=== PATIENT | male | born 1970 | race Caucasian/White ===

== ENCOUNTER 2018-01-19 16:40 | Emergency (ER) | payer SELFPAY ==
[~2018-01-19 16:40] MED LIST: ACE500 PO; ALEVE; AMIT150T21 PO; BLOOD PRESSURE MED; CEPH500C24 PO; CLI150 PO; CLIN-75 PO; CLIN300C99 PO; CYC10 PO; DOC100 PO; DOCU-416 PO; GABA-503 PO; HYD2 PO; HYDR-3140 PO; HYDR-385 PO; HYDR-4309 PO; KET10 PO; LOR1 PO; LOR5 PO; LOR5/325 PO; LORA-630 PO; METF-410 PO; MOTRIN; NAPR-1043 PO; NO RTN MEDS; OND4 PO; OXYC-763 PO; OXYC1CAP42 PO; PAN20 PO; PER PO; TRAM-420 PO; TYLENOL; WARF7.5T13 PO
--- NOTE | 2018-01-19 16:50 | ER Report ---
History and Physical Time Seen By MD: 16:49 Hx. 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 PT IS ON XARELTO. HIS PAIN IS WORSE TODAY AND THIS IS THE REASON FOR HIS VISIT HPI/ROS CHIEF COMPLAINT: Right leg pain HISTORY OF PRESENT ILLNESS: 47-year-old male patient presents to the emergency room with complaint of right leg pain. 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 He states the last couple days the pain has been significant. Patient states he's been taking Tylenol for the pain with no improvement. He denies having any fevers, chills, nausea, vomiting or diarrhea. Patient denies any shortness of breath or chest pain. Patient states that he currently lives in [facility] and is planning to move to [place]. Patient states that he is taking Xarelto has taking 20 mg daily. He states that he has not missed any doses. REVIEW OF SYSTEMS: Respiratory: No cough, no dyspnea. Cardiovascular: As noted above. Gastrointestinal: No vomiting, no abdominal pain. Musculoskeletal: No back pain. Allergies: Coded Allergies: ketorolac (Verified Allergy, Severe, PROBLEMS BREATHING, 01/19/18) propoxyphene (Verified Allergy, Severe, DIFFICULTY BREATHING, 01/19/18) Penicillins (Verified Allergy, Intermediate, HIVES, SWELIING , 01/19/18) NSAIDS (Non-Steroidal Anti-Inflamma (Verified Allergy, Unknown, 01/19/18) BLOOD THINNERS Home Meds Reported Medications Rivaroxaban 10 MG (Xarelto 10 MG) 10 Mg Tablet 01/19/18 Atorvastatin Calcium (LIPITOR) 20 Mg Tablet, 1 TAB PO QDAY, TAB 01/19/18 Gabapentin (GABAPENTIN) 600 Mg Tablet, 600 MG PO TID 05/21/15 Amitriptyline Hcl (AMITRIPTYLINE HCL) 150 Mg Tablet, 150 MG PO QHS, TAB 05/21/15 Discontinued Reported Medications Clindamycin Hcl (CLINDAMYCIN HCL) 150 Mg Capsule, 150 MG PO TID, #30 CAPSULE 09/03/17 [Blood Pressure Med] No Conflict Check 05/27/17 Warfarin Sodium (WARFARIN SODIUM) 7.5 Mg Tablet, 7.5 MG PO QDAY 05/21/15 Discontinued Scripts Hydrocodone Bit/Acetaminophen (HYDROCODON-ACETAMINOPHEN 5-325) 1 Each Tablet, 1 EACH PO Q4-6H Y for PAIN, #10 TAB Prov:ASHA FINN TABLEAU ANALYST-BC 09/03/17 Clindamycin Hcl (CLINDAMYCIN HCL) 300 Mg Capsule, 300 MG PO Q6H, #28 CAPSULE Prov:ASHA FINN TABLEAU ANALYST-BC 09/03/17 Tramadol Hcl (TRAMADOL HCL) 50 Mg Tablet, 50 MG PO Q8H Y for prn, #6 TAB Prov:LIZETTE RANDOLPH PA-C 08/22/17 Past Medical/Surgical History Patient has a past medical history of CVA, SD, DVT, hypertension, asthma, PE, ulcer, back pain, type 2 diabetes. Patient has surgical history of tonsillectomy. Reviewed Nurses Notes: Yes Hx Smoking: Yes Smoking Status: Light Tobacco Smoker Hx Substance Use Disorder: No Hx Alcohol Use: No Constitutional Vital Sign - Last 24 Hours 01/19/18 01/19/18 01/19/18 01/19/18 16:45 16:45 17:00 17:10 Temp 98.1 Pulse 98 114 Resp 20 B/P (MAP) 129/101 (110) 129/101 138/81 (100) Pulse Ox 94 92 O2 Delivery Room Air 01/19/18 01/19/18 01/19/18 01/19/18 17:15 17:30 17:40 17:45 Pulse 110 B/P (MAP) 148/102 (117) 145/95 (112) 125/91 (102) Physical Exam General Appearance: The patient is alert, has no immediate need for airway protection and no current signs of toxicity. Respiratory: Chest is non tender, lungs are clear to auscultation. Cardiac: regular rate and rhythm Gastrointestinal: Abdomen is soft and non tender, no masses, bowel sounds normal. Musculoskeletal: Neck: Neck is supple and non tender. Extremities have full range of motion and are non tender. Patient has tenderness to the medial aspect of the right upper leg, does have some swelling to the lower extremity. Skin: No rashes or lesions. DIFFERENTIAL DIAGNOSIS: After history and physical exam differential diagnosis was considered for DVT, aspiration of chronic pain. Medical Decision Making EKG/Imaging Imaging EXAMINATION: Right LOWER EXTREMITY VENOUS DOPPLER ULTRASOUND DATE: 01/19/2018 6:10 PM REASON FOR STUDY: leg pain, hx of DVT TECHNIQUE: Grayscale, color Doppler, and spectral Doppler ultrasound was performed of the lower extremity veins to evaluate for deep venous thrombosis. COMPARISON: None FINDINGS: The right common femoral and femoral are compressible with normal flow on color Doppler imaging. There is also normal Doppler flow of the profunda femoris and greater saphenous veins at the confluence with the common femoral vein. The right popliteal vein is partially compressible. Flow is demonstrated. The posterior tibial and anterior tibial veins are patent. The peroneal vein could not be demonstrated. The contralateral left common femoral vein demonstrates normal flow. IMPRESSION: The right popliteal vein is partially compressible, but flow is demonstrated. Report Dictated By: Juanita aLureano MD at 01/19/2018 6:10 PM Report E-Signed By: Juanita Laureano MD at 01/19/2018 6:14 PM ED Course/Re-evaluation ED Course Patient was admitted to exam room, history and physical were obtained. Differential diagnoses were considered. On examination patient did have some swelling to the right leg, tenderness especially in the medial thigh. A ultrasound was done of the right leg. During the time patient is here patient stated that he had been taking Tylenol for his pain, which was ineffective. He states that he is having significant amounts of pain. Through the course of stay he was requesting pain medication several times. I did ultimately order 20 mg of ketamine to be administered IM. When the nurse to cut into the room the patient refused it, stating they had concerns about memory loss and other things. They asked if there is anything else. At that time I said that there was not, I wanted to wait until we had the imaging results. During the course they became irritated, their questions to the nursing supercharge repair supervisor. However at that time she was unavailable. Sometime after that the patient got up and left the department. I did review his profile on the prescription drug monitoring program. It did show that he received 180 tablets of hydrocodone/Tylenol 10/325 on January 03, days prior to coming to the emergency room. I do have concerns that the patient was drug seeking and became angry due to not getting the narcotic pain medication that he wanted in the time that he wanted them. Decision to Disposition Date: Jan 19, 2018 Decision to Disposition Time: 17:57 Depart Departure Latest Vital Signs Vital Signs Date Time Temp Pulse Resp B/P (MAP) Pulse Ox O2 Delivery O2 Flow Rate FiO2 01/19/18 17:45 125/91 (102) 01/19/18 17:40 110 01/19/18 17:10 92 01/19/18 16:45 98.1 20 Room Air Impression: Primary Impression: Right leg pain Additional Impression: Drug-seeking behavior Condition: Condition Unchanged Disposition: AGAINST MED ADV / DISCONT CARE Problem Qualifiers BRANDON TURNER Jan 19, 2018 16:50
[2018-01-19] MEDS ORDERED: RIVA10TA (16:53)
[2018-01-19] MEDS ORDERED: ATOR20TA22 PO (16:53)
[2018-01-19] MEDS ORDERED: KETAMINE HCL 500 MG/5 ML VIAL IM ONE (17:25)
[2018-01-19 17:45] VITALS: BP 125/91
--- NOTE | 2018-01-19 18:19 | RADIOLOGY IMAGING REPORT ---
FAC[place] [facility] [place] NAME: Eloy Eisenberg : 1970 MR: [id number] V: [id number] EXAM DATE: ORDERING PHYSICIAN: BRANDON TURNER TECHNOLOGIST: Location: [facility] [place] Patient: Eloy Eisenberg : 1970 Visit/Account:[id number] Date of Sevice: 01/19/2018 EXAMINATION: Right LOWER EXTREMITY VENOUS DOPPLER ULTRASOUND DATE: 01/19/2018 6:10 PM REASON FOR STUDY: leg pain, hx of DVT TECHNIQUE: Grayscale, color Doppler, and spectral Doppler ultrasound was performed of the lower extre mity veins to evaluate for deep venous thrombosis. COMPARISON: None FINDINGS: The right common femoral and femoral are compressible with normal flow on color Doppler imaging. Ther e is also normal Doppler flow of the profunda femoris and greater saphenous veins at the confluence w ith the common femoral vein. The right popliteal vein is partially compressible. Flow is demonstrated . The posterior tibial and anterior tibial veins are patent. The peroneal vein could not be demonstra kevin. The contralateral left common femoral vein demonstrates normal flow. IMPRESSION: The right popliteal vein is partially compressible, but flow is demonstrated. Report Dictated By: Juanita Laureano MD at 01/19/2018 6:10 PM Report E-Signed By: Juanita Laureano MD at 01/19/2018 6:14 PM WSN:[id number]
== END 2018-01-19 18:06 | disposition left against medical advice (07) ==
LOC: ER 17:20
DX: M79.604 Pain in right leg (principal); Z76.5 Malingerer [conscious simulation]
CPT/HCPCS: 99283